=== PATIENT | female | born 1965 | race Caucasian/White ===

== ENCOUNTER 2016-10-12 17:51 | Emergency (ER) | payer OTHER ==
[~2016-10-12] VITALS: Ht 167.6 cm; Wt 121.5 kg
[2016-10-12 19:37] LABS: CHLORIDE 108 mEq/L (99-109)
[2016-10-12 19:38] LABS: POTASSIUM 4.1 mEq/L (3.7-5.4); SODIUM 141 mEq/L (136-147)
[2016-10-12 19:40] LABS: GLUCOSE 101 mg/dL (70-99)
[2016-10-12 19:41] LABS: ANION GAP 11 MEQ/L (2-14)
[2016-10-12 19:42] LABS: ADD MIUA? NO; BILIRUBIN SMALL; BLOOD NEGATIVE; COLOR YELLOW ((YELLOW)); GLUCOSE (STRIP) NEGATIVE; KETONES TRACE; LEUKOCYTES NEGATIVE; NITRITE NEGATIVE; PH, URINE 5.5 (5-8); PROTEIN (STRIP) NEGATIVE; SPECIFIC GRAVITY 1.021 (1.000-1.030); UCUL ADDED? NO
[2016-10-12 19:42] LABS: TOTAL BILIRUBIN 2.2 mg/dL (0.0-1.0)
[2016-10-12 19:43] LABS: GFR ESTIMATE (CALCULATED) > 59 mL/min/
[2016-10-12 19:44] LABS: ALKALINE PHOSPHATASE 74 IU/L (3-129)
[2016-10-12 19:45] LABS: UREA NITROGEN (BUN) 8 mg/dL (9-23)
[2016-10-12 19:47] LABS: SALICYLATE < 5.0 MG/DL (15-30)
[2016-10-12 20:09] LABS: AMPHETAMINE NEGATIVE (500 ng/mL); BARBITURATES NEGATIVE (200 ng/mL); BENZODIAZEPINES NEGATIVE (150 ng/mL); COCAINE NEGATIVE (150 ng/mL); INTERNAL CONTROLS VALID? YES; METHADONE NEGATIVE (200 ng/mL); METHAMPHETAMINE NEGATIVE (500 ng/mL); OPIATES (MORPHINE) NEGATIVE (100 ng/mL); OXYCODONE NEGATIVE (100 ng/mL); PHENCYCLIDINE NEGATIVE (25 ng/mL); PROPOXYPHENE NEGATIVE (300 ng/mL); THC CANNABINOIDS NEGATIVE (50 ng/mL); TRICYCLIC ANTIDEPRESSANTS NEGATIVE (300 ng/mL)
[2016-10-12 20:37] LABS: LITHIUM 0.5 MEQ/L (0.6-1.2)
[2016-10-12 20:58] LABS: HEMATOCRIT 38.2 % (36.0-46.0); MCH 29.3 PG (29.0-34.0); MCHC 31.9 G/DL (30.0-36.0); MCV 91.6 FL (83-99); MEAN PLAT.VOLUME 9.7 uM^3 (9.5-12.4); PLATELET COUNT 247 K/uL (156-360); RBC DIS.WIDTH-CV 13.5 % (11.8-14.6); RBC DIS.WIDTH-SD 43.4 % (39-53); RED BLOOD COUNT 4.17 M/uL (3.80-5.20); WHITE BLOOD COUNT 9.7 K/uL (4.1-10.2)
[2016-10-12] MEDS ORDERED: ZOFRAN4 MG PO (22:29)
[2016-10-12 22:35] VITALS: BP 157/84
== END 2016-10-12 22:36 | disposition home or self-care (01) ==
LOC: EME 17:51
PROVIDERS: Physician Assistant
DX: R11.0 Nausea (principal)
CPT/HCPCS: 80053; 80178; 81003; 82607; 85027; 99281; 99284; G0480

== ENCOUNTER → 2018-05-24 | Outpatient (CLI) | payer OTHER ==
[~2018-05-24] MED LIST: ZOFRAN4 MG PO
== END | disposition home or self-care (01) ==
LOC: EKG 05-17 14:00
DX: I05.9 Rheumatic mitral valve disease, unspecified (principal); I70.0 Atherosclerosis of aorta
CPT/HCPCS: 93306